=== PATIENT | male | born 1990 | race Caucasian/White ===

== ENCOUNTER 2020-04-27 06:45 | Emergency (ER) | payer BC ==
[~2020-04-27] VITALS: Ht 170.2 cm; Wt 70.0 kg
[2020-04-27 07:05] VITALS: BP 138/77
--- NOTE | 2020-04-27 07:50 | RAD ---
Right knee 3 views. HISTORY: Fall, pain and swelling 3 views were taken of the right knee. There is not evidence of an acute fracture. There is a large chelsea int effusion. MRI of the knee could be of benefit. IMPRESSION: 1. No acute fracture. 2. Large joint effusion right knee. Electronically signed by: Iggy Odonnell MD (04/27/2020 7:48 AM) [id number]
--- NOTE | 2020-04-27 08:03 | PHYS DOC ---
Past History Past Medical History: No Pertinent History Past Surgical History: Other Additional Past Surgical Histo: ORIF L ankle, ORIF L arm. Alcohol Use: Occasionally General Adult EDM: Chief Complaint: KNEE INJURY HPI: HPI: Patient is a 29-year-old male coming in for right knee pain. Patient states he was jumping off his porch, about 3 feet up from the ground, when he felt a pop. Patient states he thinks his lower leg deviated outwards. Has been using crutches and not been able to bear weight secondary to pain. Has had previous injuries to this knee before. Has had swelling of the joint which restricts movement. States he otherwise has been well. No other injuries. Review of Systems: Review of Systems: All other systems within normal limits except for as noted in the HPI Allergies: Allergies: Allergies Coded Allergies Type Severity Reaction Last Updated Verified No Known Drug Allergies 04/27/20 No Physical Exam: PE: Constitutional: Well developed, well nourished, no acute distress, non-toxic appearance. [] HENT: Normocephalic, atraumatic, bilateral external ears normal, nose normal. [] Eyes: PERRLA, conjunctiva normal, no discharge. [] Neck: No rigidity, supple, no stridor. [] Cardiovascular: Regular rate and rhythm, brisk cap refill [] Lungs & Thorax: Non labored symmetric respirations, no tachypnea or respiratory distress [] Abdomen: Soft, nondistended. Skin: Warm, dry, no erythema, no rash. [] Back: Unremarkable Extremities: No deformities, range of motion grossly intact, no lower extremity edema. Right knee exam: Large joint effusion with swelling to the medial aspect. Valgus laxity. No anterior, posterior, varus laxity. Flexion extension somewhat limited by pain and effusion. [] Neurologic: Alert and oriented X 3, no focal deficits noted. [] Psychologic: Affect normal, judgement normal, mood normal. [] Current Patient Data: Vital Signs: Vital Signs Date Time Temp Pulse Resp B/P (MAP) Pulse Ox O2 Delivery O2 Flow Rate FiO2 04/27/20 07:05 98.5 60 16 138/77 (97) 100 EKG: EKG: [] Radiology/Procedures: Radiology/Procedures: Right knee 3 views. HISTORY: Fall, pain and swelling 3 views were taken of the right knee. There is not evidence of an acute fracture. There is a large joint effusion. MRI of the knee could be of benefit. IMPRESSION: 1. No acute fracture. 2. Large joint effusion right knee.[] Heart Score: Risk Factors: Risk Factors: DM, Current or recent (<one month) smoker, HTN, HLP, family history of CAD, obesity. Risk Scores: Score 0 - 3: 2.5% MACE over next 6 weeks - Discharge Home Score 4 - 6: 20.3% MACE over next 6 weeks - Admit for Clinical Observation Score 7 - 10: 72.7% MACE over next 6 weeks - Early Invasive Strategies Course & Med Decision Making: Course & Med Decision Making Pertinent Labs and Imaging studies reviewed. (See chart for details) [] Dragon Disclaimer: Dragon Disclaimer: This electronic medical record was generated, in whole or in part, using a voice recognition dictation system. Departure Departure: Impression: Primary Impression: Sprain of medial collateral ligament of right knee Disposition: 01 DC HOME SELF CARE/HOMELESS Condition: STABLE Referrals: PCP,NO (PCP) Patient Instructions: RICE - Routine Care for Injuries Additional Instructions: Follow-up with Dr. Sanderson: Address: [address] [place] [address] PARKER JALLOH MD Apr 27, 2020 08:03
[2020-04-27] MEDS ORDERED: IBUPROFEN 600 MG TABLET. PO ONE (08:45)
== END 2020-04-27 08:45 | disposition home or self-care (01) ==
LOC: ER 06:45
DX: S83.411A Sprain of medial collateral ligament of right knee, initial encounter (principal); W17.89XA Other fall from one level to another, initial encounter; Y93.39 Activity, other involving climbing, rappelling and jumping off; Y92.89 Other specified places as the place of occurrence of the external cause; Y99.8 Other external cause status
CPT/HCPCS: 73562; 99283